=== PATIENT | female | born 1995 | race Caucasian/White ===

== ENCOUNTER 2016-09-12 14:37 | Emergency (ER) | payer OTHER ==
[2016-09-12] MEDS ORDERED: BCP (15:55)
[2016-09-12] MEDS ORDERED: PROZAC20 M3 PO (15:55)
== END 2016-09-12 17:04 ==
LOC: EDMED 14:37
DX: S00.93XA Contusion of unspecified part of head, initial encounter (principal); F32.9 Major depressive disorder, single episode, unspecified; W20.8XXA Other cause of strike by thrown, projected or falling object, initial encounter; Y92.69 Other specified industrial and construction area as the place of occurrence of the external cause; Y99.0 Civilian activity done for income or pay